=== PATIENT | female | born 1960 | race Caucasian/White ===

== ENCOUNTER → 2018-08-22 11:33 | Outpatient (CLI) | payer OTHER, SELFPAY ==
--- NOTE | 2018-08-22 | MISC_PTH ---
PATIENT: BALNCA BOOTHE LOC: [facility] U#:[id number] AGE/SX: 65/F ROOM: RE08/22/[address]: Dr. 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 AM:ramón 08/23/18 COMMENT There is no evidence of dysplasia or malignancy. Case has been reviewed in consultation with Dr. Anne who concurs with the above diagnosis. IDC:SJ MICROSCOPIC DESCRIPTION Slides are reviewed. GROSS DESCRIPTION Received in fixative is one container labeled with the patient's name and designated palate. The specimen consists of a piece of johnson-brown soft tissue measuring 0.2 x 0.2 x 0.1 cm. The specimen is totally submitted in one cassette. / AMEYA:ramón 08/22/18 TC:5 CPT: 82509
== END ==
PROVIDERS: Referring Provider Dentist Oral and Maxillofacial Surgery; Visit Provider Dentist Oral and Maxillofacial Surgery
DX: K13.29 Other disturbances of oral epithelium, including tongue (principal)
CPT/HCPCS: 88305

== ENCOUNTER → 2022-01-20 08:21 | Outpatient (CLI) | payer OTHER, SELFPAY ==
--- NOTE | 2022-01-20 13:50 | PFTCOMP_ITS ---
COMPLETE PULMONARY FUNCTION TEST INTERPRETATION Brief HPI: Patient is a 61 year old female, currently under the care of Dr. Anderson, who presents to [facility] for complete pulmonary function tests secondary to diagnosis of status post COVID. Respiratory therapist reports good effort and reproducible results. Interpretation: Forced expiration spirometry shows a moderately severe large airways obstructive ventilatory defect with an FEV1 of 50% predicted. There is a significant bronchodilator response in FVC by strict ATS criteria. Spirograms are of good quality and plateau slowly, indicating slowly emptying areas of the lungs. The respiratory flow volume loop shows decreased expiratory flow rates at all lung volumes consistent with airway obstruction. Lung volumes by body plethysmography show an elevated total lung capacity at 5.52 L, 117% predicted. FRC and RV are elevated out of proportion. Lung volume measurements are consistent with hyperinflation and air-trapping. Diffusion capacity by carbon monoxide is at the lower limit of normal at 72% predicted. The airway resistance is normal. No previous pulmonary function tests were available for review. Impression: Partially reversible moderately severe large airways obstructive ventilatory d efect resulting in air trapping with hyperinflation
== END ==
PROVIDERS: PCP Family Medicine; Referring Provider Internal Medicine Critical Care Medicine; Visit Provider Internal Medicine Critical Care Medicine
DX: R09.02 Hypoxemia (principal); Z86.16 Personal history of COVID-19
CPT/HCPCS: 94060; 94726; 94729

== ENCOUNTER 2022-02-03 11:02 | Outpatient (CLI) | payer OTHER, SELFPAY ==
[2022-02-03 11:29] VITALS: PULSE 101; PULSE 106; PULSE 113; PULSE 118; PULSE 121; PULSE 127; PULSE 87; PULSE 94; O2SAT 92; O2SAT 93; O2SAT 96
--- NOTE | 2022-02-03 13:05 | PCM.PSN.6M ---
PSN 6 Minute Walk Test 6 Minute Walk Test 6 Minute Walk Test: 6 Minute Walk Test PSN:6-Minute Walk Test Start: 02/03/22 11:28 Freq: Status: Active Protocol: RESP.6MINW Document 02/03/22 11:[address] [facility] (Rec: 02/03/22 11:[address] [facility] [id number]) 6 Minute Walk Test Date Performed 02/03/22 Time Performed 11:15 Height 5 ft 3 in Weight: 147.418 kg Weight in Pounds 325.[address]: Dr Anderson Assistive device used: None Pre-test Oxygen Delivery Method Room Air Pulse Ox (%) 93 Pulse Rate (60-100 beats/min) 87 Dyspnea Yakov Scale (0-10) 0 Exertion Yakov Scale (6-20) 6 1st minute Oxygen Delivery Method Room Air Pulse Ox (%) 96 Pulse Rate (60-100 beats/min) 127 H 2nd minute Oxygen Delivery Method Room Air Pulse Ox (%) 92 Pulse Rate (60-100 beats/min) 106 H 3rd minute Oxygen Delivery Method Room Air Pulse Ox (%) 92 Pulse Rate (60-100 beats/min) 121 H 4th minute Oxygen Delivery Method Room Air Pulse Ox (%) 93 Pulse Rate (60-100 beats/min) 101 H 5th minute Oxygen Delivery Method Room Air Pulse Ox (%) 93 Pulse Rate (60-100 beats/min) 118 H 6th minute Oxygen Delivery Method Room Air Pulse Ox (%) 93 Pulse Rate (60-100 beats/min) 113 H Dyspnea Yakov Scale (0-10) 0 Exertion Yakov Scale (6-20) 11 Post-test Oxygen Delivery Method Room Air Pulse Ox (%) 96 Pulse Rate (60-100 beats/min) 94 Full Laps Walked 18 Partial Lap, Number of Tiles Walked 0 Total Distance Walked (ft) 1062 Interpretation Interpretation: The patient was noted to have a lower baseline saturation of 93% that persisted throughout testing. However, patient did have significant tachycardia as high as 127 bpm indicating a cardiovascular limitation exercise tolerance. In total, the patient traveled 1062 feet over the course of 6 minutes on room air with no assist devices or breaks. Recommendations Recommendations: No supplemental oxygen is indicated at this time.
== END 2022-02-03 23:59 | disposition home or self-care (01) ==
PROVIDERS: PCP Family Medicine; Referring Provider Internal Medicine Critical Care Medicine; Visit Provider Internal Medicine Critical Care Medicine
DX: R00.0 Tachycardia, unspecified (principal); Z86.16 Personal history of COVID-19
CPT/HCPCS: 94618

== ENCOUNTER → 2022-03-03 | Outpatient (CLI) | payer OTHER, SELFPAY ==
--- NOTE | 2022-03-03 | EMB_PTH ---
PATIENT: BLANCA BOOTHE [facility]: [facility] U#:[id number] AGE/SX: 61/F ROOM: RE03/03/[address]: Dr. William Anaya MD : 1960 BED: DIS: 03/03/2022 SPEC #: [id number] RECD: 03/03/22 16:43 STATUS: LAWRENCE RELuther #: [id number] RACHEL: 03/03/22 00:[address]: William Anaya DEPT: SURGICAL PATHOLOGY RECD BY: Vicente Tobin ENTERED: 03/04/22 09:22 SP TYPE: ENDOM BX/C OTHR DR: Dr. 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 See comment. AMEYA:ramón 03/05/2022 COMMENT Immunohistochemistry ([id number]) supports the above diagnosis. Immunohistochemistry ([id number]) for microsatellite instability (mismatch repair of protein) will be performed and the results will be reported separately. MICROSCOPIC DESCRIPTION Slides are reviewed. GROSS DESCRIPTION Received in fixative is one container labeled with the patient's name and designated endometrial biopsy. The specimen consists of multiple fragments of hemorrhagic soft tissue that in aggregate measure 3 x 2.5 x 0.3 cm. The specimen is totally submitted in one cassette. / AMEYA:ramón 03/05/2022 TC:0 CPT: 39131
--- NOTE | 2022-03-03 | IMM_PTH ---
PATIENT: BLANCA BOOTHE LOC: [facility] U#:[id number] AGE/SX: 61/F ROOM: RE03/03/[address]: Dr. William Anaya MD : 1960 BED: DIS: 03/03/2022 SPEC #: [id number] RECD: 03/05/22 13:12 STATUS: LAWRENCE REQ #: [id number] RACHEL: 03/03/22 00:[address]: William Anaya DEPT: IMMUNOHISTOCHEMISTRY RECD BY: Danuta Goldberg ENTERED: 03/05/22 13:13 SP TYPE: IMMUNO OTHR DR: Dr. Magdy Anderson MD Tissues: Endometrium, NOS Procedures: MSH2 (add) MLH-1 (add) MSH6 (add) Anti-PMS2 (add) CEA (add) CK20 (add) CK5-6 (add) CK7 (add) CK8 (add) KI-67 (add) P16 (add) P53 (add) WV (add) Vimentin (add) P40 (add) ER (initial) PHYSICIAN & [address] [address] SPECIMEN INFORMATION: Tissue Source: Endometrial biopsy Clinical Info: [facility] Specimen Number: [id number] CPT code: 03925, 73269 x15 METHODOLOGY: Deparaffinized sections of prefer/formalin-fixed tissue or PAP/DQ stained slides are incubated with monoclonal/polyclonal antibodies/oligonucleotide probes. Localization is made via biotin free immunoperoxidase method. Appropriate controls are performed and reacted as expected. Results on target cell population are indicated in the following table: RESULTS: ANTIBODY / CLONE RESULT ER (6F11) positive WV (1E2) positive MLH-1 (M1) positive MSH2 (25D12) positive MSH6 (44) positive PMS2 (EXV7499) positive Ki-67 (30-9) positive,high P16 (E6H4) positive,focal P53 (DO-7) negative CK7 (OV-TL12/30) positive CK8 (67tusqA44) positive CK20 (KS20.8) negative Vimentin (V9) positive CK5-6 (D5 & 1684) positive, in the area of squamous differentiation P40 (BC28) positive, in the area of squamous differentiation CEA (11-7/TF-3HB-1) positive,focal These tests were developed and their performance characteristics determined by [facility]. They may not have been cleared or approved by the U.S. Food and Drug Administration. The FDA has determined that such clearance or approval is not necessary. The above immunohistochemical/dualISH markers are ordered and reviewed by the Pathologist. INTERPRETATION: Endometrial biopsy: Endometrial adenocarcinoma with focal area of squamous differentiation. Result of Microsatellite Instability Study: Negative (no loss of mismatch protein; no microsatellite instability detected). SJ:akin 03/06/2022
[2022-03-03 16:44] LABS: Hematocrit 37.9 % (37-47); Hemoglobin 12.1 g/dL (12.0-15.0); Mean Corp Hgb Conc 31.9 g/dL (32-36); Mean Corpuscular Hgb 28.2 pg (27.0-32.0); Mean Corpuscular Volume 88.3 fL (81-99); Mean Platelet Vol. 9.7 fl (6.2-12.0); Platelet Count 312 K/mm3 (150-450); RBC Distribution Width CV 13.6 % (11.6-14.6); RBC Distribution Width SD 43.6 fl (35.1-43.9); Red Blood Count 4.29 M/mm3 (4.2-5.4); White Blood Count 8.9 K/mm3 (4.4-11.0)
[2022-03-06 12:51] LABS: Cancer Antigen 125 33.6 U/mL (0.0-38.1); Carbohydrate Ag 19-9 2261 34 U/mL (0-35); Carcinoembryonic Antigen 1.3 ng/mL (0.0-4.7)
== END | disposition home or self-care (01) ==
PROVIDERS: PCP Family Medicine; Visit Provider Obstetrics & Gynecology
DX: C54.1 Malignant neoplasm of endometrium (principal)
CPT/HCPCS: 36415; 82378; 85027; 86301; 86304; 86900; 86901; 88305; 88341; 88342

== ENCOUNTER → 2022-06-11 | Outpatient (CLI) | payer OTHER, SELFPAY | END | disposition home or self-care (01) | LOC: SL 11:19 | PROVIDERS: PCP Family Medicine; Referring Provider Internal Medicine Critical Care Medicine; Visit Provider Internal Medicine Critical Care Medicine | DX: G47.33 Obstructive sleep apnea (adult) (pediatric) (principal) | CPT/HCPCS: 95806 ==

== ENCOUNTER 2023-04-22 09:48 | Day surgery (SDC) | payer OTHER, SELFPAY ==
[2023-04-22] VITALS (7 sets, daily range): BP systolic 96–147; BP diastolic 53–92; PULSE 77–116; RESP 16; TEMP 36.6–36.7; O2SAT 93–100; BMI 52.6
[2023-04-22] MEDS: Lactated Ringers 1,000 ML 15 ML IV (10:29)
--- NOTE | 2023-04-22 10:58 | PCM.HP.STD ---
HPI - General General Date of Admission: 04/22/23 Date of Service: 04/22/23 Chief Complaint: Screening colonoscopy HPI Narrative BLANCA PENALOZA, is a 62 F who presents today for screening colonoscopy. She does not have any abdominal pain. She denies any cramping. She denies any chest pain shortness of breath. She never had a colonoscopy in the past. She does not know her family history because she was adopted. She also has a past medical history of paroxysmal atrial fibrillation, BJ, obesity, fatigue, hypertension. At this time she does not have any change in bowel bladder habits. All other 16 review systems are negative except as pertinent positive mentioned HPI. [facility] Medical History (Updated 04/19/23 @ 14:29 by Hope Osei) Acute diastolic (congestive) heart failure (09/13/20) Atrial fibrillation with rapid ventricular response (09/13/20) Cardiology follow-up encounter COVID-19 COVID-19 virus detected (09/13/20) Easy bruising Excessive bleeding History of edema HTN (hypertension) Hypoxia Low iron Morbid obesity with BMI of 50.0-59.9, adult New onset atrial flutter (09/13/20) Non-smoker Obesity, morbid, BMI 50 or higher Paroxysmal atrial fibrillation Pneumonia due to 2019 novel coronavirus (09/13/20) Seasonal allergies Seasonal allergies Sleep apnea Wears glasses Home Medications Oral Appliance #1 ea 01/08/22 [Rx Last Taken Unknown] loratadine 10 mg tablet (Claritin) 10 mg PO DAILY PRN Allergy Symptoms 05/13/22 [History Last Taken Unknown] cholecalciferol (vitamin D3) 50 mcg (2,000 unit) capsule 5,000 unit PO DAILY 09/08/22 [History Last Taken Unknown] Allergy/AdvReac Type Severity Reaction Status Date / Time amoxicillin [From Augmentin] Allergy Nausea Verified 04/22/23 10:12 clavulanic acid Allergy Nausea Verified 04/22/23 10:12 [From Augmentin] levofloxacin [From Levaquin] AdvReac unknown Verified 04/22/23 10:12 losartan AdvReac throat Verified 04/22/23 10:12 tightness Sulfa (Sulfonamide AdvReac Hives Verified 04/22/23 10:12 Antibiotics) Family History Father Heart disease valvular heart disease Surgical History History of ankle surgery History of herniorrhaphy History of hysterectomy Social History adopted: Yes Smoking Status: Never smoker Electronic Cigarette Use: not used second hand exposure: No alcohol intake: never substance use type: does not use caffeine: No ROS Review of Systems ROS Unobtainable: other Constitutional Constitutional: Denies fatigue, fever(s), poor appetite, weight gain or weight loss ENT HEENT: Denies mouth lesions Cardiovascular Cardiovascular: Denies abdominal bloating, abdominal edema or abdominal pain Respiratory/Chest Respiratory/Chest: Denies change in mental status, change in phlegm color, chest congestion or chest tightness Gastrointestinal Gastrointestinal: Denies belching, bloating, change in bowel habits, change in stool character, chewing difficulty, coffee ground emesis, constipation, cramping, diarrhea, dyspepsia, dysphagia, early satiety, excessive flatus, fecal incontinence, heartburn, hematemesis, hematochezia, hemorrhoids, loose stools, melena, nausea, odynophagia, rectal bleeding, tenesmus, vomiting or weight changes Genitourinary Genitourinary: Denies abdominal discomfort, burning urination or itching Musculoskeletal Musculoskeletal: Reports as per HPI; Denies muscle weakness or myalgias Integumentary Integumentary: Denies jaundice Neurologic Neurologic: Denies lack of coordination or weakness Psychiatric Psychiatric: Denies confusion, depression, memory loss, mood swings, paranoia or suicidal ideation Endocrine Endocrinology: Denies systems reviewed and no addt'l complaints, except as documented Hematologic/Lymphatic Hematologic/Lymphatic: Denies anemia, easy bleeding, easy bruising or lymphadenopathy Allergic/Immunologic Allergic/Immunologic: Denies systems reviewed and no addt'l complaints, except as documented Vital Signs Vital Signs Vital Signs: 04/22/23 10:20 04/22/23 10:20 Temperature 97.9 F Temperature Source Temporal Pulse Rate 77 Respiratory Rate 16 Respiratory Pattern Normal Blood Pressure 147/92 H Blood Pressure Mean 110 Blood Pressure Source Monitor Blood Pressure Position Sitting Blood Pressure Location Left Arm Pulse Ox 96 Oxygen Delivery Method Room Air Weight Weight: 306 lb 7.08 oz Body Mass Index (BMI) 52.6 Physical Exam Const alert General Appearance: cooperative Orientation / Consciousness: oriented to person HEENT hearing grossly normal bilaterally Head and Scalp: normal to inspection Face and Sinus: face symmetric Nose: external nose normal Mouth: oral and palatal mucosa normal Eyes conjunctivae normal General Eye: normal appearance of both eyes Neck full ROM General: normal visual inspection Lymph Lymphatic: no lymphadenopathy noted Chest inspection of chest normal and palpation of chest normal Chest: symmetrical chest wall rise Resp normal respiratory effort Effort and Inspection: able to speak in complete sentences Cardio regular rate GI non-distended Percussion: normal to percussion Rectal Exam: deferred Neuro Speech: speech normal Gait (Neuro): normal gait Assessment & Plan Assessment/Plan (1) Encounter for screening for malignant neoplasm of colon: PLAN: She was explained alternatives, risk, benefits include not withstanding bleeding, infection, sepsis, perforation, need for emergent surgery . She will have an ASA of 3.
--- NOTE | 2023-04-22 11:00 | COLBX_PTH ---
PATIENT: BLANCA BOOTHE LOC: [facility] U#:[id number] AGE/SX: 62/F ROOM: RE04/22/[address]: Dr. Bonilla Hairston DO : 1960 BED: DIS: 04/22/2023 SPEC #: [id number] RECD: 04/22/23 13:19 STATUS: LAWRENCE HOOKER #: [id number] RACHEL: 04/22/23 11:[address]: Bonilla Hairston DEPT: SURGICAL PATHOLOGY RECD BY: Pierre Blevins ENTERED: 04/22/23 13:53 SP TYPE: COLON BX OTHR DR: MD Dr. Rajeev Jon MD Tissues: Cecum, NOS Procedures: Surgery Specimen Level IV HEADER OPERATION: Colonoscopy with polypectomy ? open access (MAC) PRE-OP DIAGNOSIS: Screening TISSUE SUBMITTED: Cecal polyp MICROSCOPIC DIAGNOSIS Cecal polyp, polypectomy: Tubular adenoma. SJ:ramón 04/23/2023 MICROSCOPIC DESCRIPTION Slides are reviewed. GROSS DESCRIPTION Received in fixative is one container labeled with the patient's name and designated cecal polyp. The specimen consists of one irregular fragment of light johnson soft tissue that measures 0.5 x 0.3 x 0.1 cm. The specimen is totally submitted in one cassette. / AMEYA:ramón 04/22/2023 TC:1 CPT: 82629
--- NOTE | 2023-04-22 11:30 | OP.COLON_ITS ---
Patient Name: Emily Ledesma Procedure Date: 04/22/2023 10:56 AM Date of : 1960 Age: 62 Procedure: Colonoscopy Indications: Screening for colorectal malignant neoplasm Providers: Bonilla Hairston DO Medicines: Monitored Anesthesia Care Patient Profile: This is a 62 year old female. Refer to note in patient chart for documentation of history and physical. Last Colonoscopy: none. The patient's first colonoscopy is today. Complications: No immediate complications. Procedure: Pre-Anesthesia Assessment: - Prior to the procedure, a History and Physical was performed, and patient medications and allergies were reviewed. The risks and benefits of the procedure and the sedation options and risks were discussed with the patient. All questions were answered and informed consent was obtained. Patient identification and proposed procedure were verified by the physician in the pre-procedure area. Mental Status Examination: alert and oriented. Airway Examination: normal oropharyngeal airway and neck mobility. Respiratory Examination: clear to auscultation. CV Examination: normal. Prophylactic Antibiotics: The patient does not require prophylactic antibiotics. Prior Anticoagulants: The patient has taken no previous anticoagulant or antiplatelet agents. After reviewing the risks and benefits, the patient was deemed in satisfactory condition to undergo the procedure. The anesthesia plan was to use monitored anesthesia care (MAC). Immediately prior to administration of medications, the patient was re-assessed for adequacy to receive sedatives. The heart rate, respiratory rate, oxygen saturations, blood pressure, adequacy of pulmonary ventilation, and response to care were monitored throughout the procedure. The physical status of the patient was re-assessed after the procedure. After I obtained informed consent, the scope was passed under direct vision. Throughout the procedure, the patient's blood pressure, pulse, and oxygen saturations were monitored continuously. The pediatric colonoscope was introduced through the anus and advanced to the cecum, identified by appendiceal orifice and ileocecal valve. The colonoscopy was performed without difficulty. The patient tolerated the procedure well. The quality of the bowel preparation was adequate. Scope In: 11:10:28 AM Scope Withdrawal Time 0 hours 7 minutes 26 seconds Scope Out: 11:21:01 AM Total Procedure Duration Time 0 hours 10 minutes 33 seconds Findings: The perianal and digital rectal examinations were normal. A 6 mm polyp was found in the cecum. The polyp was sessile. The polyp was removed with a cold snare. Resection and retrieval were complete. Verification of patient identification for the specimen was done. Estimated blood loss was minimal. A few small and large-mouthed diverticula were found in the recto-sigmoid colon, sigmoid colon and hepatic flexure. Impression: - One 6 mm polyp in the cecum, removed with a cold snare. Resected and retrieved. - Diverticulosis in the recto-sigmoid colon, in the sigmoid colon and at the hepatic flexure. Recommendation: - Discharge patient to home. - Resume previous diet. - Continue present medications. - Await pathology results. - Repeat colonoscopy in 5 years for surveillance. Procedure Code(s): --- Professional --- 45391, Colonoscopy, flexible; with removal of tumor(s), polyp(s), or other lesion(s) by snare technique CPT copyright 2017 [employer]. All rights reserved. The codes documented in this report are preliminary and upon pre assembly wirer review may be revised to meet current compliance requirements. Bonilla Hairston DO 04/22/2023 11:30:11 AM This report has been signed electronically. Number of Addenda: 0 Note Initiated On: 04/22/2023 10:56 AM
--- NOTE | 2023-04-22 11:30 | OP.CCLET_ITS ---
04/22/2023 Magdy Anderson Re : Colonoscopy procedure for Emily Ledesma Dear Justin This procedure was performed on April. My impressions and recommendations are as follows: Impressions : - One 6 mm polyp in the cecum, removed with a cold snare. Resected and retrieved. - Diverticulosis in the recto-sigmoid colon, in the sigmoid colon and at the hepatic flexure. Recommendations : - Discharge patient to home. - Resume previous diet. - Continue present medications. - Await pathology results. - Repeat colonoscopy in 5 years for surveillance. My findings are described in the full procedure note, which is enclosed. If I can be of further assistance, please feel free to contact me at . Sincerely, Bonilla Hairston, 04/22/2023 11:30:11 AM This report has been signed electronically.
== END 2023-04-22 12:26 | disposition home or self-care (01) ==
LOC: EN 09:54 → AC 09:55
PROVIDERS: PCP Family Medicine; Referring Provider Family Medicine; Visit Provider Internal Medicine Gastroenterology
PROC: 0DJD8ZZ Inspection of Lower Intestinal Tract, Via Natural or Artificial Opening Endoscopic (ICD-10-PCS; CPT 45378; principal; 2023-04-22 10:55)
DX: Z12.11 Encounter for screening for malignant neoplasm of colon (principal); E66.01 Morbid (severe) obesity due to excess calories; Z68.43 Body mass index [BMI] 50.0-59.9, adult; K57.30 Diverticulosis of large intestine without perforation or abscess without bleeding; I10 Essential (primary) hypertension; D12.0 Benign neoplasm of cecum
CPT/HCPCS: 45385; 88305; J7120; J2405